=== PATIENT | female | born 1930 | race African-American/Black ===

== ENCOUNTER 2016-10-28 11:29 | Emergency (ER) | payer MEDICARE, MEDICAID ==
[2016-10-28 12:42] LABS: #Basophils 0.1 thou/uL (0.0-0.2); #Lymphocytes 1.6 thou/uL (1.20-3.40); #Monocytes 0.3 thou/uL (0.11-0.59); #Neutrophils 4.1 thou/uL (1.40-6.50); %Basophils 1.7 % (0.0-1.0); %Eosinophils 0.3 % (0.0-10.0); %Lymphocytes 26.1 % (21.0-51.0); %Monocytes 5.1 % (0.0-10.0); %Neutrophils 66.9 % (42.0-75.0); Hemoglobin 13.3 g/dL (12.0-16.0); Mean Corpuscular HGB CONC 32.1 g/dL (32.0-36.0); Mean Corpuscular Volume 93.5 fl (81.0-99.0); Mean Platelet Volume 8.7 fL (7.4-10.4); Platelet Count 176 thou/uL (130-400); RBC Distribution Width 14.3 % (11.5-14.5); Red Blood Cell (RBC) Count 4.43 mill/uL (4.20-5.40); White Blood Cell (WBC) Count 6.2 thou/uL (4.8-10.8)
[2016-10-28] MEDS ORDERED: Metoprolol Tartrate 5 MG/5 ML VIAL ONE (12:47)
[2016-10-28 12:55] LABS: CKMB 4.4 ng/mL (0-6.6); Troponin I 0.052 ng/mL (< 0.028)
[2016-10-28 12:58] LABS: Bilirubin Negative (Negative); Blood, Urine Small (Negative); Clarity Clear (Clear); Glucose, Urine (Dipstick) 100 mg/dL (Negative); Leukocyte Trace (Negative); Nitrite Negative (Negative); Protein, Urine (Dipstick) 100 mg/dL (Neg-Trace); Urobilinogen 0.2 mg/dL (0.2-1.0)
[2016-10-28 13:09] LABS: ALT (SGPT) 17 U/L (0-55); AST (SGOT) 22 U/L (5-34); Albumin 3.6 g/dL (3.4-4.8); Alkaline Phosphatase 59 U/L (40-150); Anion Gap 15 mmol/L (10-20); BUN (Urea Nitrogen) 19 mg/dL (9.8-20.1); Bilirubin, Total 0.8 mg/dL (0.2-1.2); Calc. Creatinine Clearance 0 mL/min (70-130); Calcium 9.2 mg/dL (7.8-10.44); Carbon Dioxide 23 mmol/L (23-31); Chloride 110 mmol/L (98-107); Estimated GFR-MDRD 68; Globulin 3.7 g/dL (2.4-3.5); Glucose 130 mg/dL (83-110); Potassium 3.1 mmol/L (3.5-5.1); Protein, Total 7.3 g/dL (5.8-8.1); Sodium 145 mmol/L (136-145)
[2016-10-28 13:09] LABS: Bacteria/HPF Rare-Few HPF (None Seen); Crystals/HPF RARE AMORPH URATES HPF (Negative); RBC/HPF 0-3 HPF (0-3); Squamous Epithelial 0-3 HPF (0-3)
[2016-10-28 14:45] LABS: Troponin I 0.054 ng/mL (< 0.028)
--- NOTE | 2016-10-28 19:28 | RAD ---
PORTABLE CHEST 10/28/16 An AP portable film at 1153 is compared with an 03/22/15 study. The heart is upper normal in size but still acceptable for age and AP projection. It has not changed over time. there are no congestive changes or pleural effusions. The lungs are clear. The trachea i s midline. IMPRESSION: No acute thoracic finding. POS: HOME
--- NOTE | 2016-10-28 19:29 | CT ---
CT OF THE BRAIN WITHOUT CONTRAST 10/28/16 Comparison is made with the 03/22/15 study. The ventricles are normal in size for age and atrophy. There is no ventricular shift. No intracrania l bleeding, mass, or sign of stroke was found. No edema was seen. The calvarium appears intact. The sphenoid sinus, mastoid air cells, and visible paranasal sinuses were all clear. IMPRESSION: No acute intracranial findings. POS: HOME
== END 2016-10-28 15:20 | disposition home or self-care (01) ==
LOC: BURERS 11:29
DX: E11.649 Type 2 diabetes mellitus with hypoglycemia without coma (principal); I10 Essential (primary) hypertension; I25.10 Atherosclerotic heart disease of native coronary artery without angina pectoris; Z79.4 Long term (current) use of insulin; Z79.899 Other long term (current) drug therapy
CPT/HCPCS: 36416; 70450; 71010; 80053; 81003; 81015; 82553; 84443; 84484; 85025; 93005; 96374; J0360

== ENCOUNTER 2016-11-27 14:37 | Inpatient (IN) | payer MEDICARE, MEDICAID ==
[2016-11-27 15:01] LABS: INR-International Normal Ratio 1.1; PTT 24.2 SEC (22.9-36.1)
[2016-11-27 15:01] LABS: Bilirubin Negative (Negative); Blood, Urine Negative (Negative); Clarity Clear (Clear); Glucose, Urine (Dipstick) Negative (Negative); Leukocyte Small (Negative); Nitrite Negative (Negative); Protein, Urine (Dipstick) Negative (Neg-Trace); Urobilinogen 0.2 mg/dL (0.2-1.0)
[2016-11-27 15:04] LABS: #Basophils 0.1 thou/uL (0.0-0.2); #Eosinphils 0.1 thou/uL (0.0-0.7); #Lymphocytes 1.8 thou/uL (1.20-3.40); #Monocytes 0.7 thou/uL (0.11-0.59); #Neutrophils 6.9 thou/uL (1.40-6.50); %Basophils 1.4 % (0.0-1.0); %Eosinophils 0.6 % (0.0-10.0); %Lymphocytes 18.7 % (21.0-51.0); %Monocytes 6.9 % (0.0-10.0); %Neutrophils 72.4 % (42.0-75.0); Hemoglobin 10.6 g/dL (12.0-16.0); Mean Corpuscular HGB CONC 32.6 g/dL (32.0-36.0); Mean Corpuscular Hemoglobin 30.8 pg (27.0-31.0); Mean Corpuscular Volume 94.6 fl (81.0-99.0); Mean Platelet Volume 10.2 fL (7.4-10.4); Platelet Count 170 thou/uL (130-400); RBC Distribution Width 14.6 % (11.5-14.5); Red Blood Cell (RBC) Count 3.45 mill/uL (4.20-5.40); White Blood Cell (WBC) Count 9.6 thou/uL (4.8-10.8)
[2016-11-27 15:07] LABS: Bacteria/HPF None Seen HPF (None Seen); RBC/HPF None Seen HPF (0-3); Squamous Epithelial 0-3 HPF (0-3); WBC/HPF 0-3 HPF (0-3)
[2016-11-27 15:14] LABS: CKMB 1.6 ng/mL (0-6.6); Troponin I 0.038 ng/mL (< 0.028)
[2016-11-27 15:15] LABS: ALT (SGPT) 14 U/L (0-55); AST (SGOT) 21 U/L (5-34); Albumin 3.7 g/dL (3.4-4.8); Alkaline Phosphatase 67 U/L (40-150); Anion Gap 15 mmol/L (10-20); BUN (Urea Nitrogen) 42 mg/dL (9.8-20.1); Bilirubin, Total 0.3 mg/dL (0.2-1.2); Calc. Creatinine Clearance 0 mL/min (70-130); Calcium 9.5 mg/dL (7.8-10.44); Carbon Dioxide 23 mmol/L (23-31); Chloride 110 mmol/L (98-107); Estimated GFR-MDRD 35; Globulin 3.8 g/dL (2.4-3.5); Potassium 3.8 mmol/L (3.5-5.1); Protein, Total 7.5 g/dL (5.8-8.1); Sodium 144 mmol/L (136-145)
[2016-11-27 15:16] LABS: Glucose 51 mg/dL (83-110)
--- NOTE | 2016-11-27 15:45 | RAD ---
PORTABLE CHEST: DATE: 11/27/16. FINDINGS: An AP portable film at 1449 is compared with a 10/28/16 study. The heart seems marginally larger tod ay than before, but there is no overt congestive change. No effusions, focal infiltrates, or other acute changes were seen otherwise. Faint calcification is seen in the aortic arch. IMPRESSION: Mild cardiomegaly, perhaps slightly larger than before. No clear congestive change. POS: HOME
[2016-11-27] MEDS ORDERED: Dextrose 50% Abboject 50 ML SYRINGE ONE (16:20)
[2016-11-27] MEDS ORDERED: Dextrose 5 %-0.45 % NaCl 1,000 ML IV SCH ×2 (17:30→18:17)
[2016-11-27] MEDS ORDERED: Ondansetron ODT 4 MG TAB PO PRN (18:11)
[2016-11-27] MEDS ORDERED: Dextrose 5% in Water 1,000 ML IV PRN ×2 (18:14→22:49)
[2016-11-27] MEDS ORDERED: Dextrose 50% Abboject 50 ML SYRINGE SLOW IVP PRN (18:14)
[2016-11-27 20:43] LABS: Troponin I 0.056 ng/mL (< 0.028)
--- NOTE | 2016-11-27 20:52 | HP ---
DATE OF ADMISSION: 11/27/2016 CHIEF COMPLAINT: Altered mental status. HISTORY OF PRESENT ILLNESS: The patient is an 86-year-old -[place] female who lives [facility] alone, has a history of diabetes for which she has been taking insulin 75/25, 20 units in the mo rning and 11 units in the late afternoon, being followed by Dr. Gates in [place] who apparently has had several episodes of symptomatic hypoglycemia that brought her to the emergency room in prev ious admissions. Today, apparently family or friends found the patient to be poorly responsive. [facility] presented to the house and her blood sugar was 30 on the scene, the patient was brought to the emergency room after given IV fluids and glucose, her blood sugar went up to around 100, but she was also found to be hypothermic with a rectal temperature of 93. The patient is admitted for evaluation and treatment of her hypoglycemia as well as her hypothermia, likely due to the symptomat ic hypoglycemia. PAST MEDICAL HISTORY: Significant for coronary artery disease status post CABG many years ago, hist ory of diabetes mellitus, insulin-dependent for many years, history of hypertension, and history of dementia. 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 SOCIAL HISTORY: Patient lives alone. Denies alcohol or social drug use. She is followed by Dr. Omar muñoz. Apparently there has been some decline in her overall status and she does have family, jitendra josesito and nephews in the area who do follow up on her, but again she lives alone. FAMILY HISTORY: No strong family history of malignancy, coronary artery disease, nor CVA. ALLERGIES: No known drug allergies. MEDICATION LIST: The patient was unsure what medication she is taking, but from the ER records, she is apparently on Aricept 10 mg p.o. at bedtime, Integra 125/40/3 mg 1 tablet daily, Uloric 40 mg da cherelle, simvastatin 40 mg daily, metoprolol 50 mg daily, amlodipine 5 mg daily, Humalog Mix 75/25 20 un its in the morning and 11 units in the late afternoon, Lasix 40 mg daily, hydralazine 50 mg q.12h. p .r.n. hypertension, and levothyroxine 50 mcg daily. REVIEW OF SYSTEMS: The patient reports a headache when she presented to the emergency room which is now resolved once her blood sugar improved. Patient denies any visual changes, no sore throat, no chest pain or shortness of breath reported. The patient says that she has a good appetite, thinks t hat she ate green beans, corn and mashed potatoes today prior to her hypoglycemic spell. The patien t denies any diarrhea, nor constipation. Denies any dysuria, hematuria or change in urinary frequen cy. Patient denies any significant weight gain or weight loss. No significant back pain reported. The patient denies depression. PHYSICAL EXAMINATION: VITAL SIGNS: Blood pressure 158/68, respiratory rate was 16, pulse was 82, temperature 93.2 initial ly. After heating blanket and blood sugar came up, it was 97.2 oral, O2 sat 98% on room air. GENERAL: -[place] female, alert and oriented x3, in no obvious distress, easily confused, b ut cooperative. HEENT: Atraumatic, normocephalic. Extraocular movements are intact. Pupils equal, round, and reac tive to light and accommodation. Oropharynx, mucous membranes moist. No exudate, discharge or lesi ons. NECK: Supple, no masses palpated, no bruits auscultated. CHEST: Clear to auscultation bilaterally without rales or wheezes. HEART: Regular rate and rhythm without murmurs, rubs or gallops. ABDOMEN: Obese, soft, nontender, nondistended, no masses were palpated. EXTREMITIES: No cyanosis, clubbing or edema noted. LABORATORY AND X-RAY FINDINGS: On admission, the patient's initial blood sugar was 51, came up to 1 33 at the time of evaluation. BUN was 42, the creatinine of 1.7, troponin was 0.038, on a recent ER visit, it was 0.05. Patient apparently has chronic borderline indeterminate troponins with her daisy al insufficiency. TSH was 1.8234. CBC had a white count 9600 with H\T\H of 10.6 and 32.6, and PT/I NR were normal. Urinalysis showed small leukocyte esterase, but 0-3 wbc's and no bacteria. CT scan was obtained in the emergency room which showed no significant findings. Patient also had a chest x-ray which was clear. ASSESSMENT AND PLAN: 1. Hypoglycemia. This is likely due to her insulin use and possible with her renal insufficiency. She was requiring less insulin, especially she has had decreased oral intake. We will hold her ins ulin. Initially, she had Accu-Cheks every half hour, but after 2 hours of Accu-Cheks over 100, we w ill go to every 4 hours. We will start her on D5 half normal saline to continue to keep her blood s ugars above 100 and monitor as needed. 2. Hypothermia, likely secondary to symptomatic hypoglycemia. Patient was given warming blanket. Her blood sugar has gone up and now her basal body temperature is improved as well. We will continu e to monitor this warm blanket as needed. 3. Hypertension. We will continue patient on her routine antihypertensives. 4. History of coronary artery disease with indeterminate troponin. The patient has no chest pain, no shortness of breath. EKG shows no signs of acute findings. She has a history of previous indete rminate troponins with her renal insufficiency. This is likely her baseline. We will continue to leonardo meléndezsnow for any signs of cardiac ischemia. DISPOSITION: Apparently the patient and family have talked about half-way placement. She is lucas ving difficulty caring for herself and lives alone. We will have Social Service consult as well as physical therapy and occupational therapy to see if she needs some longer term half-way care.
[2016-11-27] MEDS ORDERED: HumaLOG 300 UNITS/3 ML VIAL SC PRN (22:49)
[2016-11-27] MEDS ORDERED: Dextrose 50% Abboject 50 ML SYRINGE IVP PRN (22:50)
[2016-11-28] MEDS: Enoxaparin Sodium 40 MG/0.4 ML SYRINGE SC SCH (05:32)
[2016-11-28] MEDS: Levemir Flexpen 100 UNITS/ML PEN SC SCH (11:33)
[2016-11-28] MEDS ORDERED: Insulin Regular 300 UNITS/3 ML VIAL SC PRN (17:00)
[2016-11-28] MEDS: Insulin Regular 300 UNITS/3 ML VIAL SC PRN (18:17)
[2016-11-29 05:29] VITALS: BP 164/60; TEMP 97.9
[2016-11-29] MEDS: Enoxaparin Sodium 40 MG/0.4 ML SYRINGE SC SCH (05:37)
[2016-11-29 08:28] VITALS: BMI 30.4
[2016-11-29] MEDS: Levemir Flexpen 100 UNITS/ML PEN SC SCH (09:43)
[2016-11-29] MEDS: Insulin Regular 300 UNITS/3 ML VIAL SC PRN ×2 (09:44→14:53)
== END 2016-11-29 16:00 | disposition home health service (06) | DRG 639 ==
LOC: BURERS 14:37 → BURMED 16:43
PROVIDERS: ADMIT Family Medicine; ATTEND Family Medicine
DX: E11.649 Type 2 diabetes mellitus with hypoglycemia without coma (principal); F03.90 Unspecified dementia, unspecified severity, without behavioral disturbance, psychotic disturbance, mood disturbance, and anxiety; Z95.1 Presence of aortocoronary bypass graft; Z79.4 Long term (current) use of insulin; R68.0 Hypothermia, not associated with low environmental temperature; I25.10 Atherosclerotic heart disease of native coronary artery without angina pectoris; I10 Essential (primary) hypertension
CPT/HCPCS: 36415; 36416; 51702; 71010; 80053; 81003; 81015; 82553; 84443; 84484; 85025; 85610; 85730; 93005; 94760; 96360; 96374; A4216; A4353; G8978-GP-CI; G8979-GP-CI; G8980-GP-CI; J1650; J1815

== ENCOUNTER 2017-01-31 10:23 | Emergency (ER) | payer MEDICARE, OTHER ==
[2017-01-31 11:48] LABS: Hemoglobin (Hb) 12.2 g/dL (11.7-16.1)
[2017-01-31 11:53] LABS: ALT (SGPT) 13 U/L (8-55); AST (SGOT) 16 U/L (5-34); Albumin 3.5 g/dL (3.4-4.8); Alkaline Phosphatase 82 U/L (40-150); Anion Gap 24 mmol/L (10-20); BUN (Urea Nitrogen) 73 mg/dL (9.8-20.1); Bilirubin, Total 0.9 mg/dL (0.2-1.2); Calc. Creatinine Clearance 0 mL/min (70-130); Calcium 8.9 mg/dL (7.8-10.44); Carbon Dioxide 17 mmol/L (23-31); Chloride 100 mmol/L (98-107); Estimated GFR-MDRD 16; Globulin 4.1 g/dL (2.4-3.5); Lipase 23 U/L (8-78); Potassium 4.6 mmol/L (3.5-5.1); Protein, Total 7.6 g/dL (6.0-8.3); Sodium 136 mmol/L (136-145)
[2017-01-31 11:55] LABS: #Basophils 0.1 thou/uL (0.0-0.2); #Lymphocytes 1.5 thou/uL (1.20-3.40); #Monocytes 0.4 thou/uL (0.11-0.59); #Neutrophils 6.5 thou/uL (1.40-6.50); %Basophils 1.2 % (0.0-1.0); %Eosinophils 0.6 % (0.0-10.0); %Lymphocytes 16.9 % (21.0-51.0); %Monocytes 5.1 % (0.0-10.0); %Neutrophils 76.1 % (42.0-75.0); Hemoglobin 12.2 g/dL (12.0-16.0); Mean Corpuscular HGB CONC 32.4 g/dL (32.0-36.0); Mean Corpuscular Hemoglobin 28.9 pg (27.0-31.0); Mean Corpuscular Volume 89.2 fl (81.0-99.0); Mean Platelet Volume 10.7 fL (7.4-10.4); Platelet Count 141 thou/uL (130-400); RBC Distribution Width 13.1 % (11.5-14.5); Red Blood Cell (RBC) Count 4.23 mill/uL (4.20-5.40); White Blood Cell (WBC) Count 8.6 thou/uL (4.8-10.8)
[2017-01-31 11:56] LABS: CKMB 3.9 ng/mL (0-6.6); Troponin I 0.105 ng/mL (< 0.028)
[2017-01-31 12:03] LABS: Glucose Greater than 800 mg/dL (83-110)
[2017-01-31] MEDS ORDERED: Ondansetron HCl/PF 4 MG/2 ML Vial ONE (12:07)
[2017-01-31] MEDS ORDERED: Insulin Regular 300 UNITS/3 ML VIAL ONE (12:10)
[2017-01-31 12:14] LABS: Bilirubin Negative (Negative); Blood, Urine Trace (Negative); Clarity Clear (Clear); Glucose, Urine (Dipstick) 500 mg/dL (Negative); Leukocyte Negative (Negative); Nitrite Negative (Negative); Protein, Urine (Dipstick) Trace mg/dL (Neg-Trace); Urobilinogen 0.2 mg/dL (0.2-1.0); pH, Urine 5.5 (5.0-9.0)
[2017-01-31 12:25] LABS: Specific Gravity, Urine 1.025 (1.005-1.030)
[2017-01-31 12:40] LABS: Bacteria/HPF Rare-Few HPF (None Seen); RBC/HPF 0-3 HPF (0-3); Squamous Epithelial 0-3 HPF (0-3); WBC/HPF 0-3 HPF (0-3)
--- NOTE | 2017-01-31 23:14 | RAD ---
PORTABLE CHEST 01/31/17 Comparison is made with the 11/27/16 study. The heart size is normal today. There is no congestion of vessels or pleural effusion. No focal pulm onary infiltrate was seen. Arteriosclerotic change is seen in the aortic arch. Median sternotomy sut ures josefina prior surgery. IMPRESSION: No acute thoracic findings. POS: HOME
== END 2017-01-31 12:37 | disposition short-term general hospital (02) ==
LOC: BURERS 10:23
DX: E10.10 Type 1 diabetes mellitus with ketoacidosis without coma (principal); N17.9 Acute kidney failure, unspecified; R79.89 Other specified abnormal findings of blood chemistry; E78.5 Hyperlipidemia, unspecified; I10 Essential (primary) hypertension; I25.10 Atherosclerotic heart disease of native coronary artery without angina pectoris; Z79.899 Other long term (current) drug therapy
CPT/HCPCS: 71010; 80053; 81003; 81015; 82553; 82805; 83690; 84484; 85025; 93005; 94760; 96365; 96375; A4353; J1815; J2405

== ENCOUNTER 2017-04-20 06:09 | Outpatient (CLI) | payer MEDICARE, MEDICAID ==
[2017-04-20 06:37] LABS: Bilirubin Negative (Negative); Blood, Urine Negative (Negative); Clarity Clear (Clear); Glucose, Urine (Dipstick) Negative (Negative); Leukocyte Large (Negative); Nitrite Negative (Negative); Protein, Urine (Dipstick) Negative (Neg-Trace); Urobilinogen 0.2 mg/dL (0.2-1.0)
[2017-04-20 06:38] LABS: Specific Gravity, Urine 1.005 (1.005-1.030)
[2017-04-20 06:43] LABS: Bacteria/HPF Rare-Few HPF (None Seen); Other Microscopic Description C&S SET UP; RBC/HPF 0-3 HPF (0-3); Squamous Epithelial 0-3 HPF (0-3)
== END 2017-04-20 06:10 | disposition home or self-care (01) ==
LOC: BURLABSP 06:09
PROVIDERS: ATTEND Clinical Nurse Specialist Medical-Surgical
DX: N39.0 Urinary tract infection, site not specified (principal)
CPT/HCPCS: 81001; 87086

== ENCOUNTER 2020-01-17 13:33 | Emergency (ER) | payer MEDICARE, MEDICAID ==
[2020-01-17 14:08] LABS: #Monocytes 0.2 thou/uL (0.11-0.59); #Neutrophils 3.6 thou/uL (1.40-6.50); %Basophils 0.9 % (0.0-1.0); %Eosinophils 0.6 % (0.0-10.0); %Lymphocytes 19.8 % (21.0-51.0); %Monocytes 4.9 % (0.0-10.0); %Neutrophils 73.9 % (42.0-75.0); Hemoglobin 9.4 g/dL (12.0-16.0); Mean Corpuscular HGB CONC 28.7 g/dL (32.0-36.0); Mean Corpuscular Hemoglobin 27.3 pg (27.0-31.0); Mean Corpuscular Volume 94.9 fL (78.0-98.0); Mean Platelet Volume 6.7 fL (7.4-10.4); Platelet Count 144 thou/uL (130-400); RBC Distribution Width 17.6 % (11.5-14.5); Red Blood Cell (RBC) Count 3.45 mill/uL (4.20-5.40); White Blood Cell (WBC) Count 4.9 thou/uL (4.8-10.8)
[2020-01-17 14:17] LABS: ALT (SGPT) Less than 7 U/L (8-55); AST (SGOT) 11 U/L (5-34); Albumin 3.7 g/dL (3.4-4.8); Alkaline Phosphatase 59 U/L (40-110); Anion Gap 15 mmol/L (10-20); BUN (Urea Nitrogen) 29 mg/dL (9.8-20.1); Bilirubin, Total 0.6 mg/dL (0.2-1.2); Calc. Creatinine Clearance 0 mL/min (70-130); Calcium 9.4 mg/dL (7.8-10.44); Carbon Dioxide 22 mmol/L (23-31); Chloride 114 mmol/L (98-107); Estimated GFR-MDRD 32; Globulin 3.4 g/dL (2.4-3.5); Glucose 171 mg/dL (83-110); Potassium 4.9 mmol/L (3.5-5.1); Protein, Total 7.1 g/dL (6.0-8.3); Sodium 146 mmol/L (136-145)
[2020-01-17 14:23] LABS: Anisocytosis SLIGHT = 6-15 cells (100X) (0-5/hpf); MDiff Complete? YES; Platelet Morphology Comment Appears Adequate
[2020-01-17 14:37] LABS: CKMB 1.5 ng/mL (0-6.6)
[2020-01-17] MEDS ORDERED: Aspirin Chewable 81 MG TAB ONE ×2 (15:18→15:19)
[2020-01-17] MEDS ORDERED: hydrOXYzine 25 MG TAB ONE (15:18)
--- NOTE | 2020-01-17 16:56 | RAD ---
PORTABLE CHEST: 01/17/20 COMPARISON: Comparison is made with the 05/30/[address] [facility]. The heart is unchanged in size. There is no vascular congestion, edema, or pleural effusion. No infil trates are present. The mediastinum is unremarkable in appearance. IMPRESSION: No acute thoracic findings. POS: HOME
[2020-01-17 17:43] LABS: Bilirubin Small (Negative); Blood, Urine Small (Negative); Clarity Cloudy (Clear); Glucose, Urine (Dipstick) Negative (Negative); Leukocyte Trace (Negative); Nitrite Negative (Negative); Protein, Urine (Dipstick) 30 mg/dL (Neg-Trace)
[2020-01-17 17:44] LABS: Bacteria/HPF 3+ HPF (None Seen); Squamous Epithelial 0-3 HPF (0-3)
== END 2020-01-17 17:39 | disposition short-term general hospital (02) ==
LOC: BURERS 13:33
DX: N17.9 Acute kidney failure, unspecified (principal); E86.0 Dehydration; I25.10 Atherosclerotic heart disease of native coronary artery without angina pectoris; E11.9 Type 2 diabetes mellitus without complications; E78.5 Hyperlipidemia, unspecified; I10 Essential (primary) hypertension; F03.90 Unspecified dementia, unspecified severity, without behavioral disturbance, psychotic disturbance, mood disturbance, and anxiety; Z79.899 Other long term (current) drug therapy
CPT/HCPCS: 36415; 71045; 80053; 81003; 81015; 82553; 84484; 85025; 93005; 96360

== ENCOUNTER 2020-04-08 12:57 | Emergency (ER) | payer MEDICARE, MEDICAID ==
[2020-04-08 13:24] LABS: Hemoglobin 7.8 g/dL (12.0-16.0); Mean Corpuscular HGB CONC 28.9 g/dL (32.0-36.0); Mean Corpuscular Hemoglobin 28.4 pg (27.0-31.0); Mean Corpuscular Volume 98.4 fL (78.0-98.0); Platelet Count 166 thou/uL (130-400); RBC Distribution Width 17.9 % (11.5-14.5); Red Blood Cell (RBC) Count 2.75 mill/uL (4.20-5.40); White Blood Cell (WBC) Count 5.3 thou/uL (4.8-10.8)
[2020-04-08 13:27] LABS: Prothrombin Time 13.1 sec (12.0-14.7)
[2020-04-08 13:35] LABS: #Basophils 0.1 thou/uL (0.0-0.2); #Eosinphils 0.1 thou/uL (0.0-0.7); #Lymphocytes 1.2 thou/uL (1.20-3.40); #Monocytes 0.2 thou/uL (0.11-0.59); #Neutrophils 3.7 thou/uL (1.40-6.50); %Basophils 1.2 % (0.0-1.0); %Eosinophils 1.4 % (0.0-10.0); %Lymphocytes 22.4 % (21.0-51.0); Anisocytosis SLIGHT = 6-15 cells (100X) (0-5/hpf); MDiff Complete? YES; Ovalocytes SLIGHT = 2-5 cells (100X) (0-1/hpf); Poikilocytosis SLIGHT = 6-15 cells (100X) (0-5/hpf); Schistocytes SLIGHT = 2-5 cells (100X) (0-1/hpf); Tear Drops SLIGHT = 2-5 cells (100X) (0-1/hpf)
[2020-04-08 13:37] LABS: ALT (SGPT) 8 U/L (8-55); AST (SGOT) 10 U/L (5-34); Albumin 3.6 g/dL (3.4-4.8); Alkaline Phosphatase 51 U/L (40-110); Anion Gap 15 mmol/L (10-20); BUN (Urea Nitrogen) 50 mg/dL (9.8-20.1); Bilirubin, Total 0.4 mg/dL (0.2-1.2); Calc. Creatinine Clearance 0 mL/min (70-130); Calcium 9.2 mg/dL (7.8-10.44); Carbon Dioxide 18 mmol/L (23-31); Chloride 114 mmol/L (98-107); Estimated GFR-MDRD 25; Globulin 3.3 g/dL (2.4-3.5); Glucose 147 mg/dL (83-110); Potassium 5.4 mmol/L (3.5-5.1); Protein, Total 6.9 g/dL (6.0-8.3); Sodium 142 mmol/L (136-145)
[2020-04-08] MEDS ORDERED: Pantoprazole 40 MG VIAL ONE (15:10)
--- NOTE | 2020-04-08 21:07 | RAD ---
PORTABLE CHEST: 04/08/20 An AP portable film at 1321 is compared with a 01/17/20 study The heart is normal in size and the lungs are clear. No infiltrate, effusion, or congestive change wa s seen. Faint calcification is present in the aortic arch. Median sternotomy sutures are seen from pr ior surgery. IMPRESSION: No acute thoracic findings. POS: HOME
== END 2020-04-08 15:26 | disposition short-term general hospital (02) ==
LOC: BURERS 12:57
DX: D64.9 Anemia, unspecified (principal); R55 Syncope and collapse; N17.9 Acute kidney failure, unspecified; E11.9 Type 2 diabetes mellitus without complications; E78.5 Hyperlipidemia, unspecified; I10 Essential (primary) hypertension; F03.90 Unspecified dementia, unspecified severity, without behavioral disturbance, psychotic disturbance, mood disturbance, and anxiety; Z79.899 Other long term (current) drug therapy; Z79.82 Long term (current) use of aspirin
CPT/HCPCS: 36415; 71045; 80053; 82274; 83880; 84484; 85025; 85610; 93005; 96361; 96374; C9113

== ENCOUNTER 2020-06-30 14:37 | Emergency (ER) | payer MEDICARE, MEDICAID ==
[2020-06-30 15:34] LABS: #Basophils 0.1 thou/uL (0.0-0.2); #Lymphocytes 0.8 thou/uL (1.20-3.40); #Monocytes 0.3 thou/uL (0.11-0.59); #Neutrophils 3.7 thou/uL (1.40-6.50); %Basophils 1.2 % (0.0-1.0); %Eosinophils 0.6 % (0.0-10.0); %Lymphocytes 15.8 % (21.0-51.0); %Monocytes 6.7 % (0.0-10.0); %Neutrophils 75.7 % (42.0-75.0); Hemoglobin 8.4 g/dL (12.0-16.0); MDiff Complete? YES; Manual Diff?? NO; Mean Corpuscular HGB CONC 29.9 g/dL (32.0-36.0); Mean Corpuscular Hemoglobin 27.1 pg (27.0-31.0); Mean Corpuscular Volume 90.6 fL (78.0-98.0); Platelet Count 203 thou/uL (130-400); RBC Distribution Width 15.4 % (11.5-14.5); Red Blood Cell (RBC) Count 3.11 mill/uL (4.20-5.40); White Blood Cell (WBC) Count 4.9 thou/uL (4.8-10.8)
[2020-06-30 15:40] LABS: ALT (SGPT) 10 U/L (8-55); AST (SGOT) 11 U/L (5-34); Albumin 3.4 g/dL (3.4-4.8); Alkaline Phosphatase 58 U/L (40-110); Anion Gap 14 mmol/L (10-20); BUN (Urea Nitrogen) 34 mg/dL (9.8-20.1); Bilirubin, Total 0.3 mg/dL (0.2-1.2); Calc. Creatinine Clearance 0 mL/min (70-130); Calcium 8.6 mg/dL (7.8-10.44); Carbon Dioxide 23 mmol/L (23-31); Chloride 109 mmol/L (98-107); Estimated GFR-MDRD 41; Globulin 3.3 g/dL (2.4-3.5); Glucose 133 mg/dL (83-110); Potassium 4.8 mmol/L (3.5-5.1); Protein, Total 6.7 g/dL (6.0-8.3); Sodium 141 mmol/L (136-145)
[2020-06-30 15:58] LABS: CKMB 1.2 ng/mL (0-6.6)
[2020-06-30] MEDS ORDERED: Aspirin Chewable 81 MG TAB ONE (16:08)
--- NOTE | 2020-06-30 16:36 | RAD ---
PORTABLE CHEST: Date: 06/30/2020 An AP portable film at 1506 hours shows mild cardiomegaly which is no different than the 04/13/2020 s tudy. There is no vascular congestion or edema. The lungs are clear. Cardiac pacer is present as usua l. IMPRESSION: No acute thoracic findings. POS: HOME
== END 2020-06-30 16:28 | disposition short-term general hospital (02) ==
LOC: BURERS 14:37
DX: R55 Syncope and collapse (principal); D64.9 Anemia, unspecified; R77.8 Other specified abnormalities of plasma proteins; E11.9 Type 2 diabetes mellitus without complications; E78.5 Hyperlipidemia, unspecified; Z95.1 Presence of aortocoronary bypass graft; Z79.82 Long term (current) use of aspirin; Z79.899 Other long term (current) drug therapy
CPT/HCPCS: 36415; 71045; 80053; 82553; 83880; 84484; 85025; 93005; 94760

== ENCOUNTER 2020-07-29 14:27 | Emergency (ER) | payer MEDICARE, MEDICAID ==
[2020-07-29 15:07] LABS: #Basophils 0.1 thou/uL (0.0-0.2); #Eosinphils 0.1 thou/uL (0.0-0.7); #Monocytes 0.2 thou/uL (0.11-0.59); #Neutrophils 3.6 thou/uL (1.40-6.50); %Basophils 1.1 % (0.0-1.0); %Lymphocytes 19.6 % (21.0-51.0); %Monocytes 4.2 % (0.0-10.0); %Neutrophils 73.1 % (42.0-75.0); Hemoglobin 8.8 g/dL (12.0-16.0); Mean Corpuscular HGB CONC 30.3 g/dL (32.0-36.0); Mean Corpuscular Hemoglobin 26.9 pg (27.0-31.0); Mean Corpuscular Volume 88.9 fL (78.0-98.0); Mean Platelet Volume 7.5 fL (7.4-10.4); Platelet Count 154 thou/uL (130-400); RBC Distribution Width 16.8 % (11.5-14.5); Red Blood Cell (RBC) Count 3.25 mill/uL (4.20-5.40)
[2020-07-29 15:22] LABS: ALT (SGPT) Less than 7 U/L (8-55); AST (SGOT) 11 U/L (5-34); Albumin 3.5 g/dL (3.4-4.8); Alkaline Phosphatase 51 U/L (40-110); Anion Gap 14 mmol/L (10-20); BUN (Urea Nitrogen) 41 mg/dL (9.8-20.1); Bilirubin, Total 0.4 mg/dL (0.2-1.2); Calc. Creatinine Clearance 0 mL/min (70-130); Calcium 8.9 mg/dL (7.8-10.44); Carbon Dioxide 21 mmol/L (23-31); Chloride 114 mmol/L (98-107); Globulin 3.4 g/dL (2.4-3.5); Glucose 119 mg/dL (83-110); Lipase 14 U/L (8-78); Potassium 4.4 mmol/L (3.5-5.1); Protein, Total 6.9 g/dL (6.0-8.3)
[2020-07-29 15:41] LABS: Sodium 145 mmol/L (136-145)
[2020-07-29 15:42] LABS: CKMB 0.7 ng/mL (0-6.6)
[2020-07-29 16:04] LABS: Bilirubin Negative (Negative); Blood, Urine Negative (Negative); Clarity Clear (Clear); Glucose, Urine (Dipstick) Negative (Negative); Ketone, Urine Negative (Negative); Leukocyte Negative (Negative); Nitrite Negative (Negative); Protein, Urine (Dipstick) Negative (Neg-Trace); Urobilinogen 0.2 mg/dL (Less than 2); pH, Urine 5.5 (5.0-9.0)
== END 2020-07-29 17:10 ==
LOC: BURERS 14:27
DX: E86.0 Dehydration (principal); I25.10 Atherosclerotic heart disease of native coronary artery without angina pectoris; E11.9 Type 2 diabetes mellitus without complications; E78.5 Hyperlipidemia, unspecified; I10 Essential (primary) hypertension; D64.9 Anemia, unspecified; F03.90 Unspecified dementia, unspecified severity, without behavioral disturbance, psychotic disturbance, mood disturbance, and anxiety; Z79.899 Other long term (current) drug therapy; Z79.82 Long term (current) use of aspirin
CPT/HCPCS: 51701; 80053; 81003; 82553; 83605; 83690; 84484; 85025; 93005

== ENCOUNTER 2021-01-21 13:02 | Emergency (ER) | payer OTHER, MEDICARE, MEDICAID ==
[2021-01-21 13:32] LABS: #Lymphocytes 0.7 thou/uL (1.20-3.40); #Monocytes 0.3 thou/uL (0.11-0.59); #Neutrophils 3.5 thou/uL (1.40-6.50); %Lymphocytes 15.7 % (21.0-51.0); %Monocytes 5.6 % (0.0-10.0); %Neutrophils 76.6 % (42.0-75.0); Hemoglobin 9.8 g/dL (12.0-16.0); Mean Corpuscular HGB CONC 29.6 g/dL (32.0-36.0); Mean Corpuscular Hemoglobin 27.9 pg (27.0-31.0); Mean Corpuscular Volume 94.1 fL (78.0-98.0); Mean Platelet Volume 7.6 fL (7.4-10.4); Platelet Count 139 thou/uL (130-400); RBC Distribution Width 16.7 % (11.5-14.5); Red Blood Cell (RBC) Count 3.52 mill/uL (4.20-5.40); White Blood Cell (WBC) Count 4.5 thou/uL (4.8-10.8)
[2021-01-21 13:47] LABS: ALT (SGPT) 7 U/L (8-55); AST (SGOT) 11 U/L (5-34); Albumin 3.2 g/dL (3.4-4.8); Alkaline Phosphatase 45 U/L (40-110); Anion Gap 15 mmol/L (10-20); BUN (Urea Nitrogen) 49 mg/dL (9.8-20.1); Bilirubin, Total 0.4 mg/dL (0.2-1.2); Calc. Creatinine Clearance 0 mL/min (70-130); Calcium 8.6 mg/dL (7.8-10.44); Carbon Dioxide 21 mmol/L (23-31); Chloride 113 mmol/L (98-107); Globulin 3.4 g/dL (2.4-3.5); Glucose 247 mg/dL (83-110); Potassium 5.2 mmol/L (3.5-5.1); Protein, Total 6.6 g/dL (5.8-8.1); Sodium 144 mmol/L (136-145)
[2021-01-21 13:50] LABS: Hypochromia SLIGHT = 6-15 cells (100X) (0-5/hpf); MDiff Complete? YES
[2021-01-21 14:43] LABS: Bilirubin Small (Negative); Blood, Urine Negative (Negative); Clarity Cloudy (Clear); Glucose, Urine (Dipstick) Negative (Negative); Ketone, Urine Trace mg/dL (Negative); Leukocyte Small (Negative); Nitrite Negative (Negative); Protein, Urine (Dipstick) Trace mg/dL (Neg-Trace); Specific Gravity, Urine 1.025 (1.005-1.030); Urobilinogen 0.2 mg/dL (Less than 2)
[2021-01-21 14:48] LABS: Bacteria/HPF 3+ HPF (None Seen); RBC/HPF None Seen HPF (0-3)
== END 2021-01-21 15:10 | disposition home or self-care (01) ==
LOC: BURERS 13:02
DX: Z04.3 Encounter for examination and observation following other accident (principal); I12.9 Hypertensive chronic kidney disease with stage 1 through stage 4 chronic kidney disease, or unspecified chronic kidney disease; E11.22 Type 2 diabetes mellitus with diabetic chronic kidney disease; N18.9 Chronic kidney disease, unspecified; D63.1 Anemia in chronic kidney disease; I25.10 Atherosclerotic heart disease of native coronary artery without angina pectoris; E78.5 Hyperlipidemia, unspecified; W18.30XA Fall on same level, unspecified, initial encounter
CPT/HCPCS: 80053; 81003; 81015; 85025; 87086; 99284